=== PATIENT | male | born 1980 | race Hispanic/Latino ===

== ENCOUNTER 2020-09-25 04:47 | Emergency (ER) | payer SELFPAY ==
[2020-09-25] MEDS ORDERED: ONDANSETRON 4 MG/2 ML VIAL ONE (05:27)
[2020-09-25] MEDS ORDERED: dexAMETHasone 4 MG/ML VIAL ONE (05:28)
[2020-09-25] MEDS ORDERED: MEPERIDINE HCL 25 MG/ML SYR ONE (05:28)
[2020-09-25] MEDS ORDERED: CLINDAMYCIN 900MG/D5W 900 MG/50 ML IVPB IV ONE (05:28)
[2020-09-25 05:35] LABS: Absolute Lymphocytes (CBC) 1.4 K/uL (0.7-4.9); Basophils % 0.3 % (0-1.3); Hematocrit 38.8 % (39.6-49.0); Lymphocytes % 17.4 % (15.3-44.8); MPV 7.7 fL (7.6-11.3); RBC Red Blood Cell Count 4.22 M/uL (4.33-5.43)
[2020-09-25 05:43] LABS: BUN Blood Urea Nitrogen 8 mg/dL (7-18); Bicarbonate 23 mmol/L (21-32); Glucose Level 117 mg/dL (74-106); Potassium 3.7 mmol/L (3.5-5.1); Sodium Level 138 mmol/L (136-145)
[2020-09-25] MEDS ORDERED: LIDOCAINE 1% MPF 5 ML VIAL ONE (06:10)
--- NOTE | 2020-09-25 06:16 | ER ---
Nurse's Notes [facility] Name: Lucio Monte Age: 40 yrs Sex: Male : 1980 Arrival Date: 09/25/2020 Time: 04:49 Bed 6 Private MD: Diagnosis: Peritonsillar abscess;Impetigo, unspecified;Uvulitis Presentation: 09/25 04:50 Chief complaint: Patient states: My tonsils are swollen and I cannot swallow. I had an jb4 abscess in the past and it feels the same now. I had to go to the hospital then and have it drained. 04:50 Coronavirus screen: Client denies travel out of the [place] in the last 14 days. At this jb4 time, the client does not indicate any symptoms associated with coronavirus-19. Ebola Screen: No symptoms or risks identified at this time. Initial Sepsis Screen: Does the patient meet any 2 criteria? No. Patient's initial sepsis screen is negative. Does the patient have a suspected source of infection? No. Patient's initial sepsis screen is negative. Risk Assessment: Do you want to hurt yourself or someone else? Patient reports no desire to harm self or others. Onset of symptoms was September 25, 2020. Transition of care: patient was not received from another setting of care. 04:50 Method Of Arrival: Ambulatory jb4 04:50 Acuity: REN 2 jb4 Historical: - Allergies: 05:01 No Known Allergies; jb4 - Home Meds: 05:01 None [Active]; jb4 - PMHx: 05:01 None; jb4 - PSHx: 05:01 None; jb4 - Immunization history:: Adult Immunizations up to date. - Social history:: Smoking status: Patient reports the use of cigarette tobacco products, smokes one pack cigarettes per day. Patient uses street drugs, marijuana, Patient/guardian denies using alcohol. - Family history:: not pertinent. - Hospitalizations: : No recent hospitalization is reported. Screenin:50 Abuse screen: Denies threats or abuse. Nutritional screening: No deficits noted. jb4 Tuberculosis screening: No symptoms or risk factors identified. Fall Risk None identified. Assessment: 04:50 General: Appears in no apparent distress. uncomfortable, Behavior is calm, cooperative. jb4 Pain: Complains of pain in throat Pain does not radiate. Pain currently is 10 out of 10 on a pain scale. Neuro: Level of Consciousness is awake, alert, obeys commands, Oriented to person, place, time, situation. Cardiovascular: Patient's skin is warm and dry. Respiratory: Airway is patent Respiratory effort is even, unlabored, Respiratory pattern is regular, symmetrical. GI: No signs and/or symptoms were reported involving the gastrointestinal system. : No signs and/or symptoms were reported regarding the genitourinary system. EENT: Throat is clear has enlarged tonsils bilaterally with gag reflex present. Derm: Skin is intact, Skin is pink, warm \T\ dry. Musculoskeletal: Circulation, motion, and sensation intact. Range of motion: intact in all extremities. 06:17 Reassessment: Patient appears in no apparent distress at this time. Patient and/or jb4 family updated on plan of care and expected duration. Pain level reassessed. Patient is alert, oriented x 3, equal unlabored respirations, skin warm/dry/pink. Assisted provider with I \T\ D of abscess of the throat. Vital Signs: 04:50 BP 121 / 87; Pulse 87; Resp 16; Temp 98.8(TE); Pulse Ox 100% on R/A; Weight 77.11 kg jb4 (R); Height 5 ft. 9 in. (175.26 cm) (R); Pain 10/10; 05:45 BP 124 / 83; Pulse 81; Resp 16; Pulse Ox 99% on R/A; jb4 04:50 Body Mass Index 25.10 (77.11 kg, 175.26 cm) jb4 ED Course: 04:49 Patient arrived in ED. bp1 04:50 Arm band placed on right wrist. jb4 04:50 Patient has correct armband on for positive identification. Bed in low position. Call jb4 light in reach. Side rails up X 1. Pulse ox on. NIBP on. 04:57 Nilo Benito MD is Attending Physician. rn 04:58 Sergio Yee, JOSELUIS is Primary Nurse. jb4 05:01 Triage completed. jb4 05:15 Strep Sent. ds4 05:15 Inserted saline lock: 20 gauge in right forearm, using aseptic technique. Blood ds4 collected. 06:15 Assist provider with I \T\ D: of an abscess on peritonsillar area Set up I\T\D tray. kevin 4 Performed by Nilo Benito MD Patient tolerated poorly. Patient did not have IV access during this emergency room visit. 06:16 Nicol Easton MD is Referral Physician. rn Administered Medications: 05:27 Drug: Decadron - Dexamethasone 10 mg Route: IVP; Site: right forearm; jb4 06:00 Follow up: Response: No adverse reaction; Marked relief of symptoms jb4 05:28 Drug: Zofran (Ondansetron) 4 mg Route: IVP; Site: right forearm; jb4 06:00 Follow up: Response: No adverse reaction jb4 05:30 Drug: Clindamycin 900 mg Route: IVPB; Infused Over: 30 mins; Site: right forearm; jb4 06:00 Follow up: Response: No adverse reaction; IV Status: Completed infusion; IV Intake: [id number] 05:30 Drug: Demerol 25 mg {Note: Rass score 0.} Route: IVP; Site: right forearm; jb4 06:00 Follow up: Response: No adverse reaction; Pain is decreased; RASS: Alert and Calm (0) jb4 06:10 Drug: Lidocaine (1 %) 5 mg {Note: Administered by ER provider..} Route: Infiltration; jb4 06:21 Follow up: Response: No adverse reaction jb4 06:30 Drug: [place] (7.5 mg-325 mg) 1 tabs Route: PO; jb4 06:33 Follow up: Response: Medication administered at discharge. jb4 Intake: 06:00 IV: 50ml; Total: 50ml. jb4 Outcome: 06:16 Discharge ordered by . rn 06:33 Discharged to home ambulatory. jb4 06:33 Condition: stable 06:33 Discharge instructions given to patient, Instructed on discharge instructions, follow up and referral plans. medication usage, Demonstrated understanding of instructions, follow-up care, medications, Prescriptions given X 4. 06:35 Patient left the ED. jb4 Signatures: Nilo Benito MD MD rn Swanson, Donovan ds4 Sergio Yee RN RN jb4 Mariah Champion Corrections: (The following items were deleted from the chart) 05:22 05:22 Group A Streptococcus Rapid [id number].BRZ drawn and sent. 4 4 05:32 05:28 Zofran (Ondansetron) 4 mg IVP in left forearm jb4 jb4
--- NOTE | 2020-09-25 06:17 | EDPHYS ---
Physician Documentation [facility] Name: Lucio Monte Age: 40 yrs Sex: Male : 1980 Arrival Date: 09/25/2020 Time: 04:49 Bed 6 Private MD: ED Physician Nilo Benito HPI: 09/25 05:20 This 40 yrs old Male presents to ER via Ambulatory with complaints of Tonsil rn Swollen, Fever. 05:20 The patient reports fever, not measured (subjective). Onset: The symptoms/episode rn began/occurred 4 day(s) ago. Modifying factors: there are no obvious modifying factors. Severity of symptoms: At their worst the symptoms were moderate in the emergency department the symptoms are unchanged. The patient has experienced a previous episode. Reports 4 days of subjective fever and sore throat, got worse yesterday, similar to once in past when needed drainage. No sob. + pain with swallowing. No trauma. . Historical: - Allergies: 05:01 No Known Allergies; jb4 - Home Meds: 05:01 None [Active]; jb4 - PMHx: 05:01 None; jb4 - PSHx: 05:01 None; jb4 - Immunization history:: Adult Immunizations up to date. - Social history:: Smoking status: Patient reports the use of cigarette tobacco products, smokes one pack cigarettes per day. Patient uses street drugs, marijuana, Patient/guardian denies using alcohol. - Family history:: not pertinent. - Hospitalizations: : No recent hospitalization is reported. ROS: 05:20 Constitutional: + subjective fever and chills Eyes: Negative for injury, pain, redness, rn and discharge, ENT: + sore throat Neck: Negative for injury, pain, and swelling, Cardiovascular: Negative for chest pain, palpitations, and edema, Respiratory: Negative for shortness of breath, cough, wheezing, and pleuritic chest pain, Abdomen/GI: Negative for abdominal pain, nausea, vomiting, diarrhea, and constipation, Skin: + rash/blisters to lips/mouth Neuro: Negative for headache, weakness, numbness, tingling, and seizure. Exam: 05:20 Constitutional: This is a well developed, well nourished patient who is awake, alert, rn and in no acute distress. Head/Face: Normocephalic, atraumatic. Eyes: Pupils equal round and reactive to light, extra-ocular motions intact. Lids and lashes normal. Conjunctiva and sclera are non-icteric and not injected. Cornea within normal limits. Periorbital areas with no swelling, redness, or edema. ENT: + rash to outer lips, with honey-colored crusting, + mild pharyngeal erythema with swollen right peritonsillar area, uvula pushed to left, MMM. No stridor. + uvula swelling Cardiovascular: Regular rate and rhythm. No pulse deficits. Respiratory: No increased work of breathing, no retractions or nasal flaring. MS/ Extremity: Pulses equal, no cyanosis. Neurovascular intact. Full, normal range of motion. Equal circumference. Neuro: Awake and alert, GCS 15, oriented to person, place, time, and situation. Cranial nerves II-XII grossly intact. Motor strength 5/5 in all extremities. Sensory grossly intact. Cerebellar exam normal. Normal gait. Vital Signs: 04:50 BP 121 / 87; Pulse 87; Resp 16; Temp 98.8(TE); Pulse Ox 100% on R/A; Weight 77.11 kg jb4 (R); Height 5 ft. 9 in. (175.26 cm) (R); Pain 10/10; 05:45 BP 124 / 83; Pulse 81; Resp 16; Pulse Ox 99% on R/A; jb4 04:50 Body Mass Index 25.10 (77.11 kg, 175.26 cm) jb4 Procedures: 06:11 I \T\ D: Incision and drainage was performed for an abscess of the right peritonsillar rn area. Anesthetized with 2 ml's 1% Lidocaine. Incised with 18g needle. Drained moderate amount purulent fluid. serosanguinous fluid. the patient tolerated the procedure well, Drained total of 10 cc purulence out of right sided peritonsillar area, swelling and fluctuance improved markedly. Aspirated 3 different poles and last aspiration only blood, no purulence. MDM: 04:57 Patient medically screened. rn 06:14 Differential diagnosis: viral Infection, bacterial infection, peritonsillar abscess. rn Data reviewed: vital signs, nurses notes, lab test result(s), and as a result, I will discharge patient. Counseling: I had a detailed discussion with the patient and/or guardian regarding: the historical points, exam findings, and any diagnostic results supporting the discharge/admit diagnosis, lab results, the need for outpatient follow up, to return to the emergency department if symptoms worsen or persist or if there are any questions or concerns that arise at home. Response to treatment: the patient's symptoms have markedly improved after treatment, and as a result, I will discharge patient. Special discussion: I discussed with the patient/guardian in detail that at this point there is no indication for admission to the hospital. It is understood, however, that if the symptoms persist or worsen the patient needs to return immediately for re-evaluation. Based on the history and exam findings, there is no indication for further emergent testing or inpatient evaluation. I discussed with the patient/guardian the need to see the ENT specialist for further evaluation of the symptoms. ED course: Atleast 10 cc of purulence removed from peritonsillar region, swelling markedly improved, given clindamycin IV along with steroids. Will dc home with abx and steroids. . 09/25 05:05 Order name: CBC with Diff; Complete Time: 05:54 rn 09/25 05:05 Order name: Basic Metabolic Panel; Complete Time: 05:54 rn 09/25 05:05 Order name: Strep; Complete Time: 05:54 rn 09/25 05:54 Order name: Throat Culture EDMS 09/25 05:05 Order name: IV Start; Complete Time: 05:22 rn Administered Medications: 05:27 Drug: Decadron - Dexamethasone 10 mg Route: IVP; Site: right forearm; jb4 06:00 Follow up: Response: No adverse reaction; Marked relief of symptoms jb4 05:28 Drug: Zofran (Ondansetron) 4 mg Route: IVP; Site: right forearm; jb4 06:00 Follow up: Response: No adverse reaction jb4 05:30 Drug: Clindamycin 900 mg Route: IVPB; Infused Over: 30 mins; Site: right forearm; jb4 06:00 Follow up: Response: No adverse reaction; IV Status: Completed infusion; IV Intake: [id number] 05:30 Drug: Demerol 25 mg {Note: Rass score 0.} Route: IVP; Site: right forearm; jb4 06:00 Follow up: Response: No adverse reaction; Pain is decreased; RASS: Alert and Calm (0) jb4 06:10 Drug: Lidocaine (1 %) 5 mg {Note: Administered by ER provider..} Route: Infiltration; jb4 06:21 Follow up: Response: No adverse reaction jb4 06:30 Drug: [place] (7.5 mg-325 mg) 1 tabs Route: PO; jb4 06:33 Follow up: Response: Medication administered at discharge. jb4 Disposition: 09/25/20 06:16 Discharged to Home. Impression: Peritonsillar abscess, Impetigo, unspecified, Uvulitis. - Condition is Stable. - Discharge Instructions: Peritonsillar Abscess, [id number], Impetigo, Adult. - Prescriptions for Bactroban 2 % Topical Ointment - Apply to affected area 1 application by TOPICAL route every 12 hours; 30 gram. Clindamycin HCl 300 mg Oral Capsule - take 1 capsule by ORAL route every 6 hours for 10 days; 40 capsule. Prednisone 20 mg Oral Tablet - take 3 tablet by ORAL route once daily for 5 days; 15 tablet. Tylenol- Codeine #3 300-30 mg Oral Tablet - take 1 tablet by ORAL route every 6 hours As needed; 15 tablet. - Medication Reconciliation Form, Thank You Letter, Antibiotic Education, Prescription Opioid Use form. - Follow up: Nicol Easton MD; When: As needed; Reason: Recheck today's complaints, Re-evaluation by your physician. - Problem is new. - Symptoms have improved. Signatures: Dispatcher [employer] EDMS Nilo Benito MD MD rn Bryson, James, RN RN jb4 Corrections: (The following items were deleted from the chart) 06:14 05:20 Constitutional: This is a well developed, well nourished patient who is awake, rn alert, and in no acute distress. Head/Face: Normocephalic, atraumatic. Eyes: Pupils equal round and reactive to light, extra-ocular motions intact. Lids and lashes normal. Conjunctiva and sclera are non-icteric and not injected. Cornea within normal limits. Periorbital areas with no swelling, redness, or edema. ENT: + rash to outer lips, with honey-colored crusting, + mild pharyngeal erythema with swollen right peritonsillar area, uvula pushed to left, MMM. No stridor. Cardiovascular: Regular rate and rhythm. No pulse deficits. Respiratory: No increased work of breathing, no retractions or nasal flaring. MS/ Extremity: Pulses equal, no cyanosis. Neurovascular intact. Full, normal range of motion. Equal circumference. Neuro: Awake and alert, GCS 15, oriented to person, place, time, and situation. Cranial nerves II-XII grossly intact. Motor strength 5/5 in all extremities. Sensory grossly intact. Cerebellar exam normal. Normal gait. rn 06:34 06:16 09/25/2020 06:16 Discharged to Home. Impression: Peritonsillar abscess; Impetigo, jb4 unspecified; Uvulitis. Condition is Stable. Forms are Medication Reconciliation Form, Thank You Letter, Antibiotic Education, Prescription Opioid Use. Follow up: Nicol Easton; When: As needed; Reason: Recheck today's complaints, Re-evaluation by your physician. Problem is new. Symptoms have improved. rn
[2020-09-25] MEDS ORDERED: HYDROCODONE/APAP 7.5/325 MG TAB ONE (06:40)
[2020-09-25 06:42] VITALS: TEMP 98.8
[2020-09-25 06:44] VITALS: BP 124/83; O2SAT 99
== END 2020-09-25 06:34 | disposition home or self-care (01) ==
LOC: ER 04:47
PROC: 0C9PXZZ Drainage of Tonsils, External Approach (ICD-10-PCS; principal; 2020-09-25)
DX: J36 Peritonsillar abscess (principal); L01.00 Impetigo, unspecified; K12.2 Cellulitis and abscess of mouth; F17.210 Nicotine dependence, cigarettes, uncomplicated
CPT/HCPCS: 36415; 80048; 85025; 87070; 87081; 96365; 96375; 99284; J1100; J2175; J2405

== ENCOUNTER 2021-05-24 10:06 | Emergency (ER) | payer SELFPAY ==
--- OUTSIDE RECORDS SUMMARY | 2021-05-24 10:10 | XMS REPORT | Continuity of Care Document ---
:1980 Author Organization [facility] t Address [address] [place] [address] [place] [id number] Care Team Providers Name Role Phone Unavailable Unavailable Unavailable Problems This patient has no known problems. Allergies, Adverse Reactions, Alerts This patient has no known allergies or adverse reactions. Medications This patient has no known medications. Procedures This patient has no known procedures. Results This patient has no known results.
[2021-05-24] MEDS ORDERED: NA CHLORIDE 0.9% 1,000 ML ONE (11:00)
[2021-05-24] MEDS ORDERED: ONDANSETRON 4 MG/2 ML VIAL ONE (11:00)
[2021-05-24 11:08] LABS: Absolute Lymphocytes (CBC) 1.6 K/uL (0.7-4.9); Basophils % 0.7 % (0-1.3); Hematocrit 41.4 % (39.6-49.0); Lymphocytes % 18.7 % (15.3-44.8); MPV 7.8 fL (7.6-11.3); RBC Red Blood Cell Count 4.57 M/uL (4.33-5.43)
[2021-05-24 11:27] LABS: ALT/SGPT 21 U/L (12-78); AST/SGOT 16 U/L (15-37); Albumin 3.8 g/dL (3.4-5.0); Alkaline Phosphatase 79 U/L (45-117); BUN Blood Urea Nitrogen 14 mg/dL (7-18); Bicarbonate 29 mmol/L (21-32); Bilirubin Direct < 0.1 mg/dL (0-0.2); Bilirubin Total 0.4 mg/dL (0.2-1.0); Glucose Level 75 mg/dL (74-106); Lipase 37 U/L (73-393); Potassium 4.2 mmol/L (3.5-5.1); Protein, Total 7.6 g/dL (6.4-8.2); Sodium Level 141 mmol/L (136-145)
--- NOTE | 2021-05-24 11:34 | RAD REPORT ---
EXAM DESCRIPTION: CTAbdomen Pelvis W Contrast - 05/24/2021 11:15 am CLINICAL HISTORY: Abdominal pain. ABD PAIN COMPARISON: No comparisons TECHNIQUE: Biphasic CT imaging of the abdomen and pelvis was performed with 100 ml non-ionic IV cont rast. All CT scans are performed using dose optimization technique as appropriate and may include automated exposure control or mA/KV adjustment according to patient size. FINDINGS: The lung bases are clear. The liver, spleen, pancreas, adrenal glands and kidneys are within normal limits. Benign appearing le ft renal cyst noted. No bowel obstruction, free air, free fluid or abscess. Moderate stool is seen throughout the colon. T he appendix is normal in size but contains a punctate appendicolith. No evidence of significant lymp hadenopathy. No suspicious bony findings. IMPRESSION: No acute intra-abdominal or pelvic finding.
[2021-05-24 13:03] LABS: SARS-COV-2 RT PCR NEGATIVE (NEGATIVE)
--- NOTE | 2021-05-24 13:10 | ER ---
Nurse's Notes [facility] Name: Lucio Monte Age: 41 yrs Sex: Male : 1980 Arrival Date: 05/24/2021 Time: 10:23 Bed 14 Private MD: Diagnosis: Abdominal pain, unspecified Presentation: 05/24 10:25 Chief complaint: EMS states: IN CUSTODY OF [employer], C/O ABDOMINAL PAIN WITHOUT VOMITING OR bp DIARRHEA. 10:25 Coronavirus screen: At this time, the client does not indicate any symptoms associated bp with coronavirus-19. Ebola Screen: No symptoms or risks identified at this time. Initial Sepsis Screen: Does the patient meet any 2 criteria? No. Patient's initial sepsis screen is negative. Does the patient have a suspected source of infection? No. Patient's initial sepsis screen is negative. Risk Assessment: Do you want to hurt yourself or someone else? Patient reports no desire to harm self or others. Onset of symptoms was May 23, 2021. 10:25 Method Of Arrival: EMS: [facility] bp 10:25 Acuity: REN 3 bp 10:25 Care prior to arrival: Glucose check: 105. bp Triage Assessment: 10:25 General: Appears distressed, uncomfortable, Behavior is cooperative, appropriate for bp age, anxious. Pain: Complains of pain in abdomen. EENT: No deficits noted. Neuro: Level of Consciousness is awake, alert, obeys commands, Oriented to Appropriate for age. Cardiovascular: Rhythm is sinus rhythm. Respiratory: No deficits noted. GI: Reports DIFFUSE ABDOMINAL PAIN. : No signs and/or symptoms were reported regarding the genitourinary system. Derm: No deficits noted. Musculoskeletal: No deficits noted. Historical: - Allergies: 10:39 No Known Allergies; bp - Home Meds: 10:39 None [Active]; bp - PMHx: 10:39 None; bp - Social history:: Smoking status: . - Family history:: not pertinent. - Hospitalizations: : No recent hospitalization is reported. Screenin:06 Abuse screen: Denies threats or abuse. Denies injuries from another. Nutritional jl7 screening: No deficits noted. Tuberculosis screening: No symptoms or risk factors identified. Fall Risk IV access (20 points). Total Brian Fall Scale indicates No Risk (0-24 pts). Assessment: 10:45 General: Appears in no apparent distress. uncomfortable, Behavior is anxious, fussy. jl7 Pain: Complains of pain in right lower quadrant and left lower quadrant Pain currently is 10 out of 10 on a pain scale. Quality of pain is described as aching, Pain began 1 day ago. Is continuous. Neuro: Level of Consciousness is awake, alert, obeys commands, Oriented to person, place, time, situation. Cardiovascular: Patient's skin is warm and dry. Respiratory: Airway is patent Respiratory effort is even, unlabored, Respiratory pattern is regular, symmetrical. GI: Abdomen is flat, non-distended, Reports nausea, Patient currently denies diarrhea, vomiting. Derm: Skin is pink, warm \T\ dry. 12:29 Reassessment: Patient appears in no apparent distress at this time. No changes from jl7 previously documented assessment. Patient and/or family updated on plan of care and expected duration. Pain level reassessed. Patient is alert, oriented x 3, equal unlabored respirations, skin warm/dry/pink. Vital Signs: 10:25 BP 110 / 50; Pulse 80; Resp 17; Temp 97.9; Pulse Ox 100% ; bp 11:00 BP 110 / 67; Pulse 75; Resp 15; Pulse Ox 100% ; jl7 12:19 BP 105 / 68; Pulse 78; Resp 19; Pulse Ox 100% ; jl7 ED Course: 10:23 Patient arrived in ED. rn 10:25 Nilo Benito MD is Attending Physician. rn 10:25 Arm band placed on. bp 10:28 Yeison Jurado, RN is Primary Nurse. jl7 10:32 Triage completed. bp 10:50 Missed attempt(s): 20 gauge in right antecubital area. Bleeding controlled, band aid jl7 applied, catheter tip intact. 10:50 COVID swab sent to lab. Flu and/or RSV swab sent to lab. jl7 11:00 Initial lab(s) drawn, by mo, sent to lab. Inserted saline lock: 20 gauge in right jl7 wrist, using aseptic technique. Blood collected. 11:06 Patient has correct armband on for positive identification. Bed in low position. Call jl7 light in reach. Side rails up X 1. Security at bedside. Pulse ox on. NIBP on. 11:15 CT Abd/Pelvis - IV Contrast Only In Process Unspecified. EDMS 13:36 No provider procedures requiring assistance completed. IV discontinued, intact, jl7 bleeding controlled, No redness/swelling at site. Pressure dressing applied. Administered Medications: 11:00 Drug: NS 0.9% 1000 ml Route: IV; Rate: 1000 ml; Site: right wrist; jl7 12:00 Follow up: Response: No adverse reaction; IV Status: Completed infusion; IV Intake: jl7 1000ml 11:00 Drug: Zofran (Ondansetron) 4 mg Route: IVP; Site: right wrist; jl7 11:30 Follow up: Response: No adverse reaction; Nausea is decreased jl7 Intake: 12:00 IV: 1000ml; Total: 1000ml. jl7 Outcome: 13:09 Discharge ordered by . rn 13:36 Discharged to [employer] jl7 13:36 Condition: stable 13:36 Discharge instructions given to patient, police, Instructed on discharge instructions, follow up and referral plans. Demonstrated understanding of instructions, follow-up care. 13:37 Patient left the ED. jl7 Signatures: Dispatcher [employer] EDMS Nilo Benito MD MD rn Leal, Jahala, RN RN jl7 Silvio Franco, RN RN bp Corrections: (The following items were deleted from the chart) 10:32 10:29 Chief complaint: EMS states: IN CUSTODY OF [employer], C/O ABDOMINAL PAIN WITHOUT bp VOMITING OR DIARRHEA bp 13:36 10:00 NS 0.9% 1000 ml IV at 1000 ml in right wrist jl7 jl7
--- NOTE | 2021-05-24 13:10 | EDPHYS ---
Physician Documentation [facility] Name: Lucio Monte Age: 41 yrs Sex: Male : 1980 Arrival Date: 05/24/2021 Time: 10:23 Bed 14 Private MD: ED Physician Nilo Benito HPI: 05/24 13:06 This 41 yrs old Male presents to ER via EMS with complaints of fever, chills, rn congestion, Abdominal Pain. 13:06 Reports since yesterday having subjective chills, congestion, abd pain, nausea, rn vomiting, diarrhea. . Onset: The symptoms/episode began/occurred yesterday. Severity of symptoms: At their worst the symptoms were mild in the emergency department the symptoms are unchanged. The patient has not experienced similar symptoms in the past. The patient has not recently seen a physician. Brought from alf after complaining of abd pain and fever.. Historical: - Allergies: 10:39 No Known Allergies; bp - Home Meds: 10:39 None [Active]; bp - PMHx: 10:39 None; bp - Social history:: Smoking status: . - Family history:: not pertinent. - Hospitalizations: : No recent hospitalization is reported. 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 Exam: 13:06 Constitutional: This is a well developed, well nourished patient who is awake, alert, rn and in no acute distress. Head/Face: Normocephalic, atraumatic. Eyes: Pupils equal round and reactive to light, extra-ocular motions intact. Lids and lashes normal. Conjunctiva and sclera are non-icteric and not injected. Cornea within normal limits. Periorbital areas with no swelling, redness, or edema. ENT: MMM Neck: Trachea midline, no thyromegaly or masses palpated, and no cervical lymphadenopathy. Supple, full range of motion without nuchal rigidity, or vertebral point tenderness. No Meningismus. Cardiovascular: Regular rate and rhythm. No pulse deficits. Respiratory: No increased work of breathing, no retractions or nasal flaring. Abdomen/GI: soft, mild periumbilical tenderness, no rebound or masses Skin: Warm, dry MS/ Extremity: Pulses equal, no cyanosis. Neuro: Awake and alert, GCS 15 Vital Signs: 10:25 BP 110 / 50; Pulse 80; Resp 17; Temp 97.9; Pulse Ox 100% ; bp 11:00 BP 110 / 67; Pulse 75; Resp 15; Pulse Ox 100% ; jl7 12:19 BP 105 / 68; Pulse 78; Resp 19; Pulse Ox 100% ; jl7 MDM: 10:24 Patient medically screened. rn 13:06 Differential Diagnosis viral syndrome, COVID, enteritis, non-specific pain. Data rn reviewed: vital signs, nurses notes, lab test result(s), radiologic studies, CT scan, and as a result, I will discharge patient. Counseling: I had a detailed discussion with the patient and/or guardian regarding: the historical points, exam findings, and any diagnostic results supporting the discharge/admit diagnosis, lab results, radiology results, the need for outpatient follow up, to return to the emergency department if symptoms worsen or persist or if there are any questions or concerns that arise at home. Response to treatment: the patient's symptoms have mildly improved after treatment, and as a result, I will discharge patient. Special discussion: Based on the patient's Hx, exam, and Dx evaluation, there is no indication for emergent surgery or inpatient Tx. It is understood by the patient/guardian that if the Sx's persist or worsen they need to return immediately for re-evaluation. I discussed with the patient/guardian in detail that at this point there is no indication for admission to the hospital. It is understood, however, that if the symptoms persist or worsen the patient needs to return immediately for re-evaluation. 05/24 10:25 Order name: Basic Metabolic Panel; Complete Time: 11:48 rn 05/24 10:25 Order name: CBC with Diff; Complete Time: 11:48 rn 05/24 10:25 Order name: Hepatic Function; Complete Time: 11:48 rn 05/24 10:25 Order name: Lipase; Complete Time: 11:48 rn 05/24 10:25 Order name: IV Saline Lock; Complete Time: 11:08 rn 05/24 10:25 Order name: Labs collected and sent; Complete Time: 11:08 rn 05/24 10:25 Order name: CT Abd/Pelvis - IV Contrast Only; Complete Time: 11:48 rn 05/24 12:39 Order name: CREATININE WHOLE BLOOD; Complete Time: 12:41 EDMS 05/24 13:03 Order name: COVID-19/FLU A+B; Complete Time: 13:06 EDMS Administered Medications: 11:00 Drug: NS 0.9% 1000 ml Route: IV; Rate: 1000 ml; Site: right wrist; jl7 12:00 Follow up: Response: No adverse reaction; IV Status: Completed infusion; IV Intake: jl7 1000ml 11:00 Drug: Zofran (Ondansetron) 4 mg Route: IVP; Site: right wrist; jl7 11:30 Follow up: Response: No adverse reaction; Nausea is decreased jl7 Disposition: 05/24/21 13:09 Discharged to Home. Impression: Abdominal pain, unspecified. - Condition is Stable. - Discharge Instructions: Abdominal Pain, Adult. - Medication Reconciliation Form, Thank You Letter, Antibiotic Education, Prescription Opioid Use form. - Follow up: Private Physician; When: As needed; Reason: Recheck today's complaints, Re-evaluation by your physician. - Problem is new. - Symptoms have improved. Signatures: Dispatcher [employer] EDUT Nilo Benito MD MD rn Leal, Jahala RN RN jl7 Silvio Franco, RN RN bp Corrections: (The following items were deleted from the chart) 12:04 10:26 Influenza Screen (A \T\ B)+BA.LAB.BRZ ordered. [facility] EDUT 12:04 10:26 CORONAVIRUS+MR.LAB.BRZ ordered. [facility] EDUT 13:37 13:09 05/24/2021 13:09 Discharged to Home. Impression: Unspecified abdominal pain. jl7 Condition is Stable. Forms are Medication Reconciliation Form, Thank You Letter, Antibiotic Education, Prescription Opioid Use. Follow up: Private Physician; When: As needed; Reason: Recheck today's complaints, Re-evaluation by your physician. Problem is new. Symptoms have improved. rn
[2021-05-24 13:50] VITALS: TEMP 97.9; O2SAT 100
[2021-05-24 13:54] VITALS: BP 105/68
== END 2021-05-24 13:37 | disposition home or self-care (01) ==
LOC: ER 10:06
DX: R10.9 Unspecified abdominal pain (principal); Z20.822 Contact with and (suspected) exposure to COVID-19
CPT/HCPCS: 0240U; 36415; 74177; 80048; 80076; 82565; 83690; 85025; 96361; 96374; 99285; J2405; J7030; Q9967

== ENCOUNTER 2021-07-01 21:34 | Emergency (ER) | payer SELFPAY ==
--- OUTSIDE RECORDS SUMMARY | 2021-07-01 21:37 | XMS REPORT | Continuity of Care Document ---
:[address] [facility] t Address [address] [place] [address] Dr. Manuel [address] [place] [id number] Care Team Providers Name Role Phone Unavailable Unavailable Unavailable Problems This patient has no known problems. Allergies, Adverse Reactions, Alerts This patient has no known allergies or adverse reactions. Medications This patient has no known medications. Procedures This patient has no known procedures. Results This patient has no known results.
--- NOTE | 2021-07-01 23:23 | ER ---
Nurse's Notes [facility] Name: Lucio Monte Age: 41 yrs Sex: Male : 1980 Arrival Date: 07/01/2021 Time: 21:35 Bed 2 Private MD: Diagnosis: Presentation: 07/01 22:29 Chief complaint: Sister: He cut himself on his R knee with a chain saw today at work. ca1 They said he took some pain meds, Bars, somebody also said it is Xanax. He is an addict and he takes meds and he also do IV dugs. Pt responsive only to voice. Lac on R knee, bleeding controlled. Coronavirus screen: Client denies travel out of the [place] in the last 14 days. At this time, the client does not indicate any symptoms associated with coronavirus-19. Ebola Screen: Patient negative for fever greater than or equal to 101.5 degrees Fahrenheit, and additional compatible Ebola Virus Disease symptoms Patient denies exposure to infectious person. Patient denies travel to an Ebola-affected area in the 21 days before illness onset. No symptoms or risks identified at this time. Initial Sepsis Screen: Does the patient meet any 2 criteria? No. Patient's initial sepsis screen is negative. Does the patient have a suspected source of infection? No. Patient's initial sepsis screen is negative. Risk Assessment: Do you want to hurt yourself or someone else? Patient reports no desire to harm self or others. Onset of symptoms was July 01, 2021. 22:29 Method Of Arrival: Wheelchair ca1 22:29 Acuity: REN 2 ca1 Historical: - Allergies: 22:34 No Known Allergies; ca1 - PMHx: 22:34 None; ca1 - PSHx: 22:34 None; ca1 - Immunization history:: Client reports having NOT received the Covid vaccine. - Social history:: Smoking status: Patient reports the use of cigarette tobacco products, smokes one pack cigarettes per day. Patient uses street drugs, Methamphetamine (Meth) IV drugs, heroin. Assessment: 22:43 Reassessment: Notified CN with pt status. ca1 23:22 Reassessment: pt is A\T\O x 4, left the ED with family. bb Vital Signs: 22:29 BP 106 / 74; Pulse 64; Resp 18 S; Temp 97.6; Pulse Ox 100% on R/A; ca1 Avinash Coma Score: 22:35 Eye Response: to voice(3). Verbal Response: inappropriate words(3). Motor Response: ca1 localizes pain(5). Total: 11. ED Course: 21:35 Patient arrived in ED. cf2 22:33 Triage completed. ca1 22:34 Arm band placed on right wrist. ca1 23:15 Marc Kirkland FNP-C is PHCP. la1 23:15 Jerardo Hylton MD is Attending Physician. la1 23:16 PHCP role handed off by Marc Kirkland FNP-C cp 23:16 Donnie Vazquez PA is PHCP. cp Administered Medications: 23:22 Not Given (Patient Eloped): Tetanus-Diphtheria Toxoid Adult 0.5 ml IM once em Outcome: 23:22 Patient left the ED. bb Signatures: Augusta Poole RN RN bb Marc Kirkland FNP-C HEALTH EVALUATOR-Cla1 Donnie Vazquez PA PA cp Daniela Singh RN RN ca1 Trey Diaz cf2 Shashank Jackson RN em Corrections: (The following items were deleted from the chart) 22:35 22:29 Chief complaint: Sister: He cut himself on his R knee with a chain saw today at [employer] work. They said he took some pain meds, Bars, somebody also said it is Xanax. He is an addict and he takes meds and he also do IV dugs. Pt responsive only to pain. ca1 22:36 22:29 Chief complaint: Sister: He cut himself on his R knee with a chain saw today at [employer] work. They said he took some pain meds, Bars, somebody also said it is Xanax. He is an addict and he takes meds and he also do IV dugs. Pt responsive only to pain. Lac on R knee, bleeding controlled ca1 22:38 22:35 GCS: 10, ca1 ca1
[2021-07-01 23:49] VITALS: BP 106/74; TEMP 97.6; O2SAT 100
--- NOTE | 2021-07-02 23:23 | EDPHYS ---
Physician Documentation [facility] Name: Lucio Monte Age: 41 yrs Sex: Male : 1980 Arrival Date: 07/01/2021 Time: 21:35 Bed 2 Private MD: ED Physician Jerardo Hylton HPI: 07/01 23:20 This 41 yrs old Male presents to ER via Wheelchair with complaints of Passed cp Out Prior To Arrival, Leg Pain, Leg Injury, HE TOOK PAIN MEDS PRIOR TO COMMING, Altered Mental Status, Laceration To Leg. 23:20 The patient presents with an injury. The complaints affect the right knee. Context: cp resulted from use of chain saw, the patient can fully bear weight, the patient is able to ambulate, with mild difficulty. Onset: The symptoms/episode began/occurred today. Family member also reports patient took unknown quantity of Xanax prior to arrival. Historical: - Allergies: 22:34 No Known Allergies; ca1 - PMHx: 22:34 None; ca1 - PSHx: 22:34 None; ca1 - Immunization history:: Client reports having NOT received the Covid vaccine. - Social history:: Smoking status: Patient reports the use of cigarette tobacco products, smokes one pack cigarettes per day. Patient uses street drugs, Methamphetamine (Meth) IV drugs, heroin. ROS: 23:20 MS/extremity: Positive for injury or acute deformity, pain, of the right knee. cp 23:20 Constitutional: Negative for body aches, chills, fever. cp 23:20 Neck: Negative for pain with movement, pain at rest, stiffness. 23:20 Cardiovascular: Negative for chest pain, palpitations. 23:20 Respiratory: Negative for cough, shortness of breath, wheezing. 23:20 Abdomen/GI: Negative for abdominal pain, vomiting, diarrhea, constipation. 23:20 Back: Negative for pain at rest, pain with movement. 23:20 Neuro: Negative for altered mental status. 23:20 Psych: Positive for use of Xanax, Negative for auditory hallucinations, visual hallucinations, suicide gesture, suicidal ideation. 23:20 All other systems are negative. Exam: 23:20 Constitutional: The patient appears in no acute distress, alert, awake, cp non-diaphoretic, non-toxic, well developed, well nourished. 23:20 Head/Face: Normocephalic, atraumatic. cp 23:20 Chest/axilla: Inspection: normal. 23:20 Cardiovascular: Rate: normal. 23:20 Respiratory: the patient does not display signs of respiratory distress, Respirations: normal, no use of accessory muscles, no retractions, labored breathing, is not present. 23:20 Abdomen/GI: Exam negative for discomfort, distension, guarding, Inspection: abdomen appears normal. 23:20 Back: pain, is absent, ROM is normal. 23:20 Musculoskeletal/extremity: Joints: the right knee displays dressing in place. 23:20 Neuro: Orientation: to person, place \T\ time. Mentation: able to follow commands, Motor: moves all fours, strength is normal. 23:20 Psych: Behavior/mood is aggressive, uncooperative, Affect is animated, Patient has no thoughts/intents to harm self or others. Vital Signs: 22:29 BP 106 / 74; Pulse 64; Resp 18 S; Temp 97.6; Pulse Ox 100% on R/A; ca1 [place] Coma Score: 22:35 Eye Response: to voice(3). Verbal Response: inappropriate words(3). Motor Response: ca1 localizes pain(5). Total: 11. MDM: 23:20 Patient medically screened. cp Administered Medications: 23:22 Not Given (Patient Eloped): Tetanus-Diphtheria Toxoid Adult 0.5 ml IM once em Disposition: 07/02 02:58 Co-signature as Attending Physician, Jerardo Hylton MD. mh7 Disposition Summary: 07/01/21 23:22 Eloped Disposition: before being seen by provider bb Reason: unknown bb Signatures: Dispatcher [employer] Augusta Luo RN RN bb Donnie Vazquez PA PA cp Daniela Singh RN RN [facility] Jerardo Hylton MD MD [facility] Shashank Jackson RN em
== END 2021-07-01 23:22 | disposition left against medical advice (07) ==
LOC: ER 21:34
DX: Z53.21 Procedure and treatment not carried out due to patient leaving prior to being seen by health care provider (principal)
CPT/HCPCS: 99281

== ENCOUNTER 2021-08-02 11:13 | Emergency (ER) | payer SELFPAY ==
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
[2021-08-02 13:43] LABS: SARS-COV-2 RT PCR POSITIVE (NEGATIVE)
--- NOTE | 2021-08-02 13:45 | EDPHYS ---
Physician Documentation [facility] Name: Lucio Monte Age: 41 yrs Sex: Male : 1980 Arrival Date: 08/02/2021 Time: 11:21 Bed DX1 Private MD: ED Physician Donnie Gibbons HPI: 08/02 11:59 This 41 yrs old Male presents to ER via Ambulatory with complaints of kb Headache, Sore Throat. 11:59 The patient or guardian reports flu symptoms, myalgias. Onset: The symptoms/episode kb began/occurred 2 day(s) ago. Severity of symptoms: At their worst the symptoms were mild, in the emergency department the symptoms are unchanged. Modifying factors: The symptoms are alleviated by nothing, the symptoms are aggravated by nothing. Associated signs and symptoms: Pertinent positives: rhinorrhea, sore throat, Pertinent negatives: chest pain, diarrhea, ear ache, fever, nausea, vomiting. The patient has not experienced similar symptoms in the past. The patient has not recently seen a physician. Pt reports headache, sore throat, body aches, decreased taste and runny nose for 2 days. . Historical: - Allergies: 11:50 No Known Allergies; ll1 - PMHx: 11:50 None; ll1 - PSHx: 11:50 None; ll1 - Immunization history:: Client reports having NOT received the Covid vaccine. Flu vaccine status is unknown. Last tetanus immunization: up to date. - Social history:: Smoking status: Patient reports the use of cigarette tobacco products, smokes one pack cigarettes per day. ROS: 11:59 Constitutional: Negative for fever, chills, and weight loss. kb 11:59 ENT: Positive for rhinorrhea, sore throat, decreased taste. 11:59 Neuro: Positive for headache. 11:59 All other systems are negative. Exam: 11:59 Constitutional: This is a well developed, well nourished patient who is awake, alert, kb and in no acute distress. Head/Face: Normocephalic, atraumatic. ENT: Moist Mucous membranes Cardiovascular: Regular rate and rhythm with a normal S1 and S2. No gallops, murmurs, or rubs. No pulse deficits. Respiratory: Respirations even and unlabored. No increased work of breathing, no retractions or nasal flaring. Skin: Warm, dry with normal turgor. Normal color. MS/ Extremity: Pulses equal, no cyanosis. Neurovascular intact. Full, normal range of motion. Neuro: Awake and alert, GCS 15, oriented to person, place, time, and situation. Moves all extremities. Normal gait. Psych: Awake, alert, with orientation to person, place and time. Behavior, mood, and affect are within normal limits. Vital Signs: 11:48 BP 119 / 73; Pulse 96; Resp 17; Temp 97.7; Pulse Ox 99% ; Weight 77.11 kg; Height 5 ft. ll1 9 in. (175.26 cm); Pain 7/10; 11:48 Body Mass Index 25.10 (77.11 kg, 175.26 cm) ll1 MDM: 11:52 Patient medically screened. kb 11:59 Data reviewed: vital signs, nurses notes. Data interpreted: Pulse oximetry: on room air kb is 99 %. Interpretation: normal. Counseling: I had a detailed discussion with the patient and/or guardian regarding: the historical points, exam findings, and any diagnostic results supporting the discharge/admit diagnosis, lab results, the need for outpatient follow up, a family practitioner, to return to the emergency department if symptoms worsen or persist or if there are any questions or concerns that arise at home. 08/02 11:52 Order name: Strep; Complete Time: 13:04 kb 08/02 13:17 Order name: Throat Culture EDMS 08/02 13:44 Order name: COVID-19/FLU A+B; Complete Time: 13:44 EDMS Administered Medications: No medications were administered Disposition: 15:15 Co-signature as Attending Physician, Donnie Gibbons MD I agree with the assessment and damaris plan of care. Disposition Summary: 08/02/21 13:44 Discharge Ordered Location: Home kb Condition: Stable kb Diagnosis - Coronavirus infection, unspecified kb Followup: kb - With: Emergency Department - When: As needed - Reason: Worsening of condition Followup: kb - With: Private Physician - When: 2 - 3 days - Reason: Recheck today's complaints, Continuance of care, Re-evaluation by your physician Discharge Instructions: - Discharge Summary Sheet kb - Viral Respiratory Infection, Nzyw-Gq-Czum kb - COVID-19 kb - COVID-19 Frequently Asked Questions kb - 10 Things You Can Do to Manage Your COVID-19 Symptoms at Home - [facility] kb Forms: - Medication Reconciliation Form kb - Thank You Letter kb - Antibiotic Education kb - Prescription Opioid Use kb Signatures: Dispatcher [employer] EDJessica Patel, ANTONI-Kosta CORRALES-Donnie Mercado MD MD cha Lewis, Lynsay, RN RN ll1 Corrections: (The following items were deleted from the chart) 12:46 11:52 CORONAVIRUS+MR.LAB.BRZ ordered. EDMS EDMS 12:54 11:52 Influenza Screen (A \T\ B)+BA.LAB.BRZ ordered. EDMS EDMS
--- NOTE | 2021-08-02 13:45 | ER ---
Nurse's Notes [facility] Name: Lucio Monte Age: 41 yrs Sex: Male : 1980 Arrival Date: 08/02/2021 Time: 11:21 Bed DX1 Private MD: Diagnosis: Coronavirus infection, unspecified Presentation: 08/02 11:48 Chief complaint: Patient states: LI, sore throat, runny nose started Monday. Feels ll1 feverish. Coronavirus screen: Vaccine status: Patient reports being unvaccinated. Client denies travel out of the [place] in the last 14 days. fever, headache, sore throat, Client presents with at least one sign or symptom that may indicate coronavirus-19. Standard/surgical mask placed on the client. Ebola Screen: Patient denies travel to an Ebola-affected area in the 21 days before illness onset. Initial Sepsis Screen: Does the patient meet any 2 criteria? HR > 90 bpm. No. Patient's initial sepsis screen is negative. Does the patient have a suspected source of infection? Yes: Productive cough/pneumonia. Risk Assessment: Do you want to hurt yourself or someone else? Patient reports no desire to harm self or others. Onset of symptoms was July 31, 2021. 11:48 Method Of Arrival: Ambulatory ll1 11:48 Acuity: REN 4 ll1 Historical: - Allergies: 11:50 No Known Allergies; ll1 - PMHx: 11:50 None; ll1 - PSHx: 11:50 None; ll1 - Immunization history:: Client reports having NOT received the Covid vaccine. Flu vaccine status is unknown. Last tetanus immunization: up to date. - Social history:: Smoking status: Patient reports the use of cigarette tobacco products, smokes one pack cigarettes per day. Screenin:53 Abuse screen: Denies threats or abuse. Denies injuries from another. Nutritional ss screening: No deficits noted. Tuberculosis screening: Never had TB. Fall Risk None identified. Assessment: 13:53 General: Appears in no apparent distress. comfortable, Behavior is calm, cooperative. ss Neuro: Level of Consciousness is awake, alert. Respiratory: Airway is patent Respiratory effort is even, unlabored, Respiratory pattern is regular, symmetrical. Derm: Skin is intact, is healthy with good turgor, Skin is dry, Skin is pink, warm \T\ dry. normal. Vital Signs: 11:48 BP 119 / 73; Pulse 96; Resp 17; Temp 97.7; Pulse Ox 99% ; Weight 77.11 kg; Height 5 ft. ll1 9 in. (175.26 cm); Pain 7/10; 11:48 Body Mass Index 25.10 (77.11 kg, 175.26 cm) ll1 ED Course: 11:21 Patient arrived in ED. as 11:47 Jessica Auguste FNP-C [facility] kb 11:47 Donnie Gibbons MD is Attending Physician. kb 11:48 Arm band placed on. ll1 11:50 Triage completed. ll1 13:53 Vicki Paul, JOSELUIS is Primary Nurse. ss 13:53 Patient has correct armband on for positive identification. Bed in low position. Call ss light in reach. 13:54 No provider procedures requiring assistance completed. Patient did not have IV access ss during this emergency room visit. Administered Medications: No medications were administered Outcome: 13:44 Discharge ordered by . kb 13:54 Discharged to home ambulatory. ss 13:54 Condition: good 13:54 Discharge instructions given to patient, Instructed on discharge instructions, follow up and referral plans. Demonstrated understanding of instructions, follow-up care. 13:54 Patient left the ED. ss Signatures: Jessica Auguste FNP-C FNP-Perri Charles as Vicki Paul, RN RN Anna Grullon RN RN 1
[2021-08-02 14:09] VITALS: BP 119/73; TEMP 97.7; O2SAT 99
== END 2021-08-02 13:54 | disposition home or self-care (01) ==
LOC: ER 11:13
DX: U07.1 COVID-19 (principal); F17.210 Nicotine dependence, cigarettes, uncomplicated
CPT/HCPCS: 0240U; 87070; 87081; 99281

== ENCOUNTER 2021-09-18 14:27 | Emergency (ER) | payer SELFPAY ==
--- NOTE | 2021-09-18 15:01 | ER ---
Nurse's Notes [facility] Name: Lucio Monte Age: 41 yrs Sex: Male : 1980 Arrival Date: 09/18/2021 Time: 14:30 Bed Waiting Private MD: Diagnosis: ED Course: 09/18 14:30 Patient arrived in ED. ds1 14:44 Patient's name was called from ER lobby. No response. aa5 14:55 Patient's name was called from ER lobby. No response. aa5 15:01 Mauricio Mathias MD is Attending Physician. aa5 Administered Medications: No medications were administered Outcome: 15:01 Patient left the ED. aa5 Signatures: Shagufta Underwood ds1 Chani Piña, RN RN aa5
== END 2021-09-18 15:01 | disposition left against medical advice (07) ==
LOC: ER 14:27
DX: Z53.21 Procedure and treatment not carried out due to patient leaving prior to being seen by health care provider (principal)

== ENCOUNTER 2021-10-18 17:37 | Emergency (ER) | payer SELFPAY ==
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
[2021-10-18 19:14] LABS: Absolute Lymphocytes (CBC) 2.1 K/uL (0.7-4.9); Basophils % 0.2 % (0-1.3); Hematocrit 42.1 % (39.6-49.0); Lymphocytes % 21.4 % (15.3-44.8); MPV 7.2 fL (7.6-11.3); RBC Red Blood Cell Count 4.67 M/uL (4.33-5.43)
[2021-10-18 19:21] LABS: Protime INR 0.92
[2021-10-18 19:31] LABS: ALT/SGPT 34 U/L (12-78); AST/SGOT 19 U/L (15-37); Albumin 3.8 g/dL (3.4-5.0); Alkaline Phosphatase 81 U/L (45-117); BUN Blood Urea Nitrogen 19 mg/dL (7-18); Bicarbonate 30 mmol/L (21-32); Bilirubin Direct < 0.1 mg/dL (0-0.2); Bilirubin Total 0.2 mg/dL (0.2-1.0); Glucose Level 113 mg/dL (74-106); Protein, Total 7.9 g/dL (6.4-8.2); Sodium Level 144 mmol/L (136-145)
[2021-10-18 19:31] LABS: Barbiturates NEGATIVE (NEGATIVE); Benzodiazepines NEGATIVE (NEGATIVE); Cocaine NEGATIVE (NEGATIVE); METHAMPHETAM POSITIVE (NEGATIVE); Methadone NEGATIVE (NEGATIVE); Opiates NEGATIVE (NEGATIVE); Phencyclidine NEGATIVE (NEGATIVE); THC Cannibis POSITIVE (NEGATIVE)
--- NOTE | 2021-10-18 20:40 | ER ---
Nurse's Notes [facility] Name: Lucio Monte Age: 41 yrs Sex: Male : 1980 Arrival Date: 10/18/2021 Time: 17:39 Bed 14 Private MD: Diagnosis: Suicidal ideations Presentation: 10/18 18:06 Chief complaint: Patient states: "I've been feeling suicidal for a while and I've made aa5 several attempts". Pt states " a month ago I tried to take a bunch of pills and today I got interrupted making an attempt to hang myself". Pt states "today I called the crisis hotline". Coronavirus screen: At this time, the client does not indicate any symptoms associated with coronavirus-19. Ebola Screen: No symptoms or risks identified at this time. Initial Sepsis Screen: Does the patient meet any 2 criteria? No. Patient's initial sepsis screen is negative. Does the patient have a suspected source of infection? No. Patient's initial sepsis screen is negative. Risk Assessment: Do you want to hurt yourself or someone else? Patient reports desire/thoughts of hurting themselves or someone else. Provider notified. Onset of symptoms was 2020. 18:06 Acuity: REN 2 aa5 18:06 Method Of Arrival: Ambulatory aa5 Historical: - Allergies: 18:06 No Known Allergies; aa5 - Home Meds: 18:09 None [Active]; aa5 - PMHx: 18:06 None; aa5 - PSHx: 18:06 None; aa5 - Immunization history:: Client reports having NOT received the Covid vaccine. - Social history:: Smoking status: Patient reports the use of cigarette tobacco products, smokes one pack cigarettes per day. Patient uses street drugs, marijuana, Methamphetamine (Meth). Screenin:54 Abuse screen: Denies threats or abuse. Denies injuries from another. Nutritional jh5 screening: No deficits noted. On no prescribed diet Difficulty chewing/swallowing? No. Tuberculosis screening: No symptoms or risk factors identified. Never had TB. Possible symptoms: None Risk factors: None. Fall Risk None identified. No fall in past 12 months (0 pts). Secondary diagnosis (15 points) IV access (20 points). Ambulatory Aid- None/Bed Rest/Nurse Assist (0 pts). Gait- Normal/Bed Rest/Wheelchair (0 pts) Mental Status- Oriented to own ability (0 pts). Total Brian Fall Scale indicates No Risk (0-24 pts). Assessment: 20:57 Reassessment: Patient and/or family updated on plan of care and expected duration. Pain jh5 level reassessed. Patient is alert, oriented x 3, equal unlabored respirations, skin warm/dry/pink. Patient denies pain at this time. General: Appears distressed, slender, Behavior is cooperative, crying. Pain: Denies pain. Neuro: No deficits noted. Cardiovascular: No deficits noted. Respiratory: No deficits noted. GI: No deficits noted. : No deficits noted. EENT: No deficits noted. Derm: No deficits noted. Musculoskeletal: No deficits noted. Psych: 20:59 [place] Suicide Severity Screening: In the past month, have you wished you were jh5 or wished you could go to sleep and not wake up? pt said he feels inside and something wishes that he was . "In the past month, have you actually had any thoughts of killing yourself?" Patient responds "no." Patient responds "yes." Based off the client's response additional [place] suicide severity screening questions to be further documented on paper forms. Pt states that he does have feelings of harming himself however he does not have any intentions of acting on these thoughts. pt states that he rather seeks therapeutic advise elsewhere and is requesting to be dischared. Subjective: Patient's mood is sad, Delusions are Hallucinations are denied. Objective: Patient is cooperative, restless, Speech is normal, Affect is flat. Interventions: Removed personal items and placed in bag. Patient placed in hospital gown. Searched person for dangerous items. Safety Checks: Personal items have been removed. Door is open. Patient uses heroin Patient uses methamphetamines daily. Commitment: Patient will be a voluntary commitment. pt requesting to be discharged. Vital Signs: 18:06 BP 119 / 88; Pulse 102; Resp 18 S; Temp 98.2(O); Pulse Ox 99% on R/A; Weight 77.11 kg aa5 (R); Height 5 ft. 9 in. (175.26 cm) (R); 20:56 BP 120 / 86; Pulse 90; Resp 20; Temp 98.6; Pulse Ox 100% on R/A; Pain 0/10; jh5 18:06 Body Mass Index 25.10 (77.11 kg, 175.26 cm) aa5 ED Course: 17:39 Patient arrived in ED. ds1 18:06 Arm band placed on. aa5 18:09 Triage completed. aa5 18:18 Andrew Matute PA is PHCP. jr8 18:18 Noe Felix MD is Attending Physician. jr8 18:27 Tram Donovan, RN is Primary Nurse. jh5 19:10 Acetaminophen Sent. jh5 19:10 Basic Metabolic Panel Sent. jh5 19:10 CBC with Diff Sent. jh5 19:10 ETOH Level Sent. jh5 19:10 Hepatic Function Sent. jh5 19:11 PT-INR Sent. jh5 19:11 Ptt, Activated Sent. jh5 19:11 Salicylate Sent. jh5 19:11 Urine Drug Screen Sent. jh5 19:11 Acetaminophen Level Sent. jh5 19:11 Basic Metabolic Panel Sent. jh5 Administered Medications: No medications were administered Outcome: 20:40 Discharge ordered by . jr8 20:54 Discharged to home ambulatory. ld1 20:54 Condition: stable 20:54 Discharge instructions given to patient, Instructed on discharge instructions, follow up and referral plans. Demonstrated understanding of instructions, follow-up care. 20:54 Patient left the ED. ld1 Signatures: Shagufta Underwood ds1 Chani Piña, RN RN 5 Andrew Matute PA PA jr8 Lillie Trujillo RN RN ld1 Tram Donovan, JOSELUIS RN [facility]
--- NOTE | 2021-10-18 20:40 | EDPHYS ---
Physician Documentation [facility] Name: Lucio Monte Age: 41 yrs Sex: Male : 1980 Arrival Date: 10/18/2021 Time: 17:39 Bed 14 Private MD: ED Physician Noe Felix HPI: 10/18 19:56 This 41 yrs old Male presents to ER via Ambulatory with complaints of Suicidal jr8 Ideation. 19:56 This is a 41-year-old male patient that presented to the emergency room with complaints jr8 of suicidal ideation. Patient stated that he has had family problems from some time and has been very depressed. Has attempted suicide in the past and today he wanted to hurt himself. Stated that he was interrupted before he could try and hang himself. Had called the psych hotline number for help and was directed to the emergency room for further care.. Historical: - Allergies: 18:06 No Known Allergies; aa5 - Home Meds: 18:09 None [Active]; aa5 - PMHx: 18:06 None; aa5 - PSHx: 18:06 None; aa5 - Immunization history:: Client reports having NOT received the Covid vaccine. - Social history:: Smoking status: Patient reports the use of cigarette tobacco products, smokes one pack cigarettes per day. Patient uses street drugs, marijuana, Methamphetamine (Meth). ROS: 19:56 Eyes: Negative for injury, pain, redness, and discharge, ENT: Negative for injury, jr8 pain, and discharge, Neck: Negative for injury, pain, and swelling, Cardiovascular: Negative for chest pain, palpitations, and edema, Respiratory: Negative for shortness of breath, cough, wheezing, and pleuritic chest pain, Abdomen/GI: Negative for abdominal pain, nausea, vomiting, diarrhea, and constipation, Back: Negative for injury and pain, MS/Extremity: Negative for injury and deformity, Skin: Negative for injury, rash, and discoloration, Neuro: Negative for headache, weakness, numbness, tingling, and seizure. 19:56 Psych: Positive for anxiety, depression, suicide gesture, suicidal ideation. Exam: 19:56 Constitutional: This is a well developed, well nourished patient who is awake, alert, jr8 and in no acute distress. Cardiovascular: Regular rate and rhythm with a normal S1 and S2. No gallops, murmurs, or rubs. Normal PMI, no JVD. No pulse deficits. Respiratory: Lungs have equal breath sounds bilaterally, clear to auscultation and percussion. No rales, rhonchi or wheezes noted. No increased work of breathing, no retractions or nasal flaring. Abdomen/GI: Soft, non-tender, with normal bowel sounds. No distension or tympany. No guarding or rebound. No evidence of tenderness throughout. Skin: Warm, dry with normal turgor. Normal color with no rashes, no lesions, and no evidence of cellulitis. MS/ Extremity: Pulses equal, no cyanosis. Neurovascular intact. Full, normal range of motion. Neuro: Awake and alert, GCS 15, oriented to person, place, time, and situation. Cranial nerves II-XII grossly intact. Motor strength 5/5 in all extremities. Sensory grossly intact. Cerebellar exam normal. Normal gait. 19:56 Psych: Behavior/mood is cooperative, suicidal, depressed, Affect is calm, Oriented to person, place, time, Patient having thoughts of suicide. Plan for suicide is see hpi Judgement / Insight is normal. Memory is normal. Delusions/hallucinations are not present. Vital Signs: 18:06 BP 119 / 88; Pulse 102; Resp 18 S; Temp 98.2(O); Pulse Ox 99% on R/A; Weight 77.11 kg aa5 (R); Height 5 ft. 9 in. (175.26 cm) (R); 20:56 BP 120 / 86; Pulse 90; Resp 20; Temp 98.6; Pulse Ox 100% on R/A; Pain 0/10; jh5 18:06 Body Mass Index 25.10 (77.11 kg, 175.26 cm) aa5 MDM: 18:18 Patient medically screened. [facility] 19:56 Data reviewed: vital signs, nurses notes, lab test result(s), EKG. Data interpreted: [facility] Pulse oximetry: on room air is 99 %. Interpretation: normal. Counseling: I had a detailed discussion with the patient and/or guardian regarding: the historical points, exam findings, and any diagnostic results supporting the discharge/admit diagnosis, lab results. 20:38 ED course: Patient after talking with him is feeling much better. Wants to go to [address] for direct admission because he knows he is uninsured. Patient currently not suicidal but still knows that he needs help. Patient hemodynamically stable and in the right mind. Alert and oriented x4. Can answer all questions appropriately. Will discharge him to have him go to a psych facility of his choice.. 10/18 18:18 Order name: Acetaminophen [facility] 10/18 18:18 Order name: Basic Metabolic Panel [facility] 10/18 18:18 Order name: CBC with Diff; Complete Time: 19:37 [facility] 10/18 18:18 Order name: ETOH Level; Complete Time: 19:37 [facility] 10/18 18:18 Order name: Hepatic Function; Complete Time: 19:37 [facility] 10/18 18:18 Order name: PT-INR; Complete Time: 19:37 [facility] 10/18 18:18 Order name: Ptt, Activated; Complete Time: 19:37 [facility] 10/18 18:18 Order name: Salicylate; Complete Time: 19:55 [facility] 10/18 18:18 Order name: Urine Drug Screen; Complete Time: 19:37 [facility] 10/18 18:18 Order name: EKG - Nurse/Tech; Complete Time: 18:57 [facility] 10/18 18:19 Order name: Acetaminophen Level; Complete Time: 19:37 [facility] 10/18 18:19 Order name: Basic Metabolic Panel; Complete Time: 19:37 [facility] 10/18 19:55 Order name: COVID-19 (Coronavirus) Document "Date of Onset" if Symptomatic [facility] 10/18 18:18 Order name: IV Saline Lock; Complete Time: 18:57 [facility] 10/18 18:18 Order name: Labs collected and sent; Complete Time: 18:57 [facility] 10/18 18:18 Order name: Suicide Screening ([place]); Complete Time: 18:57 [facility] 10/18 18:18 Order name: Urine Dipstick-Ancillary (obtain specimen); Complete Time: 18:57 [facility] Administered Medications: No medications were administered Disposition: 10/19 12:39 Co-signature as Attending Physician, Noe Felix MD I agree with the assessment and kdr plan of care. Disposition Summary: 10/18/21 20:40 Discharge Ordered Location: Home [facility] Problem: new [facility] Symptoms: have improved [facility] Condition: Stable jr8 Diagnosis - Suicidal ideations jr8 Followup: jr8 - With: Private Physician - When: Upon discharge from the Emergency Department - Reason: Recheck today's complaints, Continuance of care, Re-evaluation by your physician Discharge Instructions: - Discharge Summary Sheet jr8 - Suicidal Feelings: How to Help Yourself jr8 - Helping Someone Who is Suicidal jr8 - Stress, Adult jr8 Forms: - Medication Reconciliation Form jr8 - Thank You Letter jr8 - Antibiotic Education jr8 - Prescription Opioid Use jr8 Signatures: Dispatcher [employer] EDNoe Skinner MD MD kdr Calderon, Audri, RN RN aa5 Andrew Matute PA PA jr8
[2021-10-18 21:16] VITALS: BP 119/88; TEMP 98.2; O2SAT 99
== END 2021-10-18 20:54 | disposition home or self-care (01) ==
LOC: ER 17:37
DX: R45.851 Suicidal ideations (principal); F17.210 Nicotine dependence, cigarettes, uncomplicated
CPT/HCPCS: 36415; 80048; 80076; 80307; 80320; 80329; 85025; 85610; 85730; 99284